=== PATIENT | female | born 1980 | race Two or more races ===

== ENCOUNTER 2025-03-04 11:57 | Emergency (ER) | payer MEDICAID, OTHER ==
[~2025-03-04] VITALS: Ht 154.9 cm; Wt 84.7 kg
--- NOTE | 2025-03-04 12:19 | ED.PDOC ---
SOB-HPI HPI Comments This is a 44 year old female presenting to the ED with chief complaint of SOB. Patient reports that she started to experience SOB with associated body aches and coughing since 9am this morning, no relief provided by inhaler used at home. Patient relays that she has history of asthma. Patient denies any chest pain, dizziness, fever, chills, N/V, or productive cough. Chief Complaint: Asthma Time Seen by MD: 12:16 Reviewed notes: Nurses Notes, Medications, Allergies Information Source: Patient Mode of Arrival: Ambulatory Severity: Moderate Timing: Hours Duration: Since onset Context: At Rest PE Risk Factors: None History of: Asthma Prehospital treatment: Breathing Tx Modifying Factors: Nothing Associated Signs and Symptoms: Cough If cough with SOB: Non-Productive Past Medical History PAST MEDICAL HISTORY: Asthma Surgical History: Denies all surgeries [employer] History: Denies all [employer] Hx Family History Family History: Reviewed,noncontributory to illness Social History Smoker: Non-Smoker Alcohol: Denies ETOH Use Drugs: Methamphetamine Lives In: Home Constitutional: reports: chills; denies: diaphoresis, fatigue, fever, malaise, sweats, weakness, others EENTM: denies: blurred vision, double vision, ear bleeding, ear discharge, ear drainage, ear pain, ear ringing, eye pain, eye redness, hearing loss, mouth pain, mouth swelling, nasal discharge, nose bleeding, nose congestion, nose pain, photophobia, tearing, throat pain, throat swelling, voice changes, others Respiratory: reports: cough, shortness of breath; denies: hemoptysis, orthopnea, SOB at rest, SOB with excertion, stridor, wheezing, others Cardiovascular: denies: chest pain, dizzy spells, diaphoresis, Dyspnea on exertion, edema, irregular heart beat, left arm pain, lightheadedness, palpitations, PND, syncope, others Gastrointestinal: denies: abdomen distended, abdominal pain, blood streaked bowels, constipated, diarrhea, dysphagia, difficulty swallowing, hematemesis, melena, nausea, poor appetite, poor fluid intake, rectal bleeding, rectal pain, vomiting, others Genitourinary: denies: abnormal vagina bleeding, burning, dyspareunia, dysuria, flank pain, frequency, hematuria, incontinence, pain, , vagina discharge, urgency, others Neurological: denies: dizziness, fainting, headache, left sided numbness, left sided weakness, numbness, paresthesia, pre-existing deficit, right sided numbness, right sided weakness, seizure, speech problems, tingling, tremors, weakness, others Musculoskeletal: denies: back pain, gout, joint pain, joint swelling, muscle pain, muscle stiffness, neck pain, others Integumetry: denies: bruises, change in color, change in hair/nails, dryness, laceration, lesions, lumps, rash, wounds, others Allergic/Immunocompromised: denies: Difficulty Healing, Frequent Infections, Hives, Itching, others Hematologic/Lymphatic: denies: anemia, blood clots, easy bleeding, easy bruising, swollen glands, others Endocrine: denies: excessive hunger, excessive sweating, excessive thirst, excessive urination, flushing, intolerance to cold, intolerance to heat, unexplained weight gain, unexplained weight loss, others Psychiatric: denies: anxiety, bipolar disorder, depression, hopeless, panic disorder, schizophrenia, sleepless, suicidal, others All Other Systems: Reviewed and Negative Physical Exam General Appearance: No Apparent Distress, Normal HEENT: Normal ENT Inspection, Pharynx Normal, TMs Normal Neck: Full Range of Motion, Non-Tender, Normal, Normal Inspection Respiratory: Chest Non-Tender, Lungs Clear, No Accessory Muscle Use, Wheezing (Bilaterally) Cardiovascular: No Edema, No JVD, No Murmur, No Gallop, Normal Peripheral Pulses, Regular Rate/Rhythm Breast Exam: Deferred Gastrointestinal: No Organomegaly, Non Tender, No Pulsatile Mass, Normal Bowel Sounds, Soft Genitalia: Deferred Pelvic: Deferred Rectal: Deferred Extremities: No calf tenderness, Normal capillary refill, Normal inspection, N ormal range of motion, Non-tender, No pedal edema Musculoskeletal : Apperance: Normal Neurologic: Alert, safety counselor II-XII nml as Tested, No Motor Deficits, Normal Affect, Normal Mood, No Sensory Deficits Cerebellar Function: Normal Reflexes: Normal Skin: Dry, Normal Color, Warm Lymphatic: No Adenopathy Was a procedure done? Was a procedure done?: No Differential Dx Differential Diagnosis: Asthma, Pneumonia, Respiratory Distress X-Ray, Labs, Meds, VS Vital Signs Date Time Temp Pulse Resp B/P (MAP) Pulse Ox O2 Delivery O2 Flow Rate FiO2 03/04/25 14:46 18 96 Room Air* 0 21 03/04/25 13:15 97.9 112 18 108/71 (83) 96 97.9 03/04/25 13:15 112 17 Room Air 03/04/25 12:31 18 95 Room Air* 0 21 03/04/25 12:00 98.0 124 23 125/53 96 98.0 Current Medications Medications (Trade) Dose Ordered Sig/Kathi Route Start Time Stop Time Status Last Admin Albuterol (Ventolin Medneb) 2.5 mg ONCE ONCE NEB 03/04/25 12:15 03/04/25 12:16 DC 03/04/25 12:31 Ipratropium Antelope (Atrovent Medneb) 0.5 mg ONCE ONCE NEB 03/04/25 12:15 03/04/25 12:16 DC 03/04/25 12:31 Prednisone 40 mg ONCE ONCE PO 03/04/25 12:15 03/04/25 12:16 DC 03/04/25 13:13 Albuterol (Ventolin Medneb) 5 mg ONCE ONCE NEB 03/04/25 12:45 03/04/25 12:46 DC 03/04/25 14:46 Time of 1ST Reevaluation: 13:15 Reevaluation 1ST: Improved Patient Education/Counseling: Diagnosis, Treatment Family Education/Counseling: No Family Present SEPSIS Sepsis Screen Date sepsis recognized/suspect: Mar 04, 2025 Time Sepsis recognized/suspect: 1200 Recent Procedure: No On Antibiotic Therapy: No Respiratory Rate >20: No Heart Rate >90: Yes Temp<36 C (96.8 F) or >38.3 C: No SBP <90 or MAP <65 mmHG: No New Acute Mental Status Change: No Is the patient on CPAP, BIPAP,: No Physician Orders Chest Portable (03/04/25 12:11) Vital Signs Date Time Temp Pulse Resp B/P (MAP) Pulse Ox O2 Delivery O2 Flow Rate FiO2 03/04/25 14:46 18 96 Room Air* 0 21 03/04/25 13:15 97.9 112 18 108/71 (83) 96 97.9 03/04/25 13:15 112 17 Room Air 03/04/25 12:31 18 95 Room Air* 0 21 03/04/25 12:00 98.0 124 23 125/53 96 98.0 Medications Medications Dose Ordered Sig/Kathi Route Start Time Stop Time Status Last Admin Dose Admin Albuterol 2.5 mg ONCE ONCE NEB 03/04/25 12:15 03/04/25 12:16 DC 03/04/25 12:31 Albuterol 5 mg ONCE ONCE NEB 03/04/25 12:45 03/04/25 12:46 DC 03/04/25 14:46 Ipratropium Antelope 0.5 mg ONCE ONCE NEB 03/04/25 12:15 03/04/25 12:16 DC 03/04/25 12:31 Prednisone 40 mg ONCE ONCE PO 03/04/25 12:15 03/04/25 12:16 DC 03/04/25 13:13 Departure 1 Departure Time of Disposition: 15:37 (Patient likely with asthma exacerbation. We will discharge patient home with outpatient follow up) Impression: Primary Impression: Acute asthma exacerbation Disposition: HOME / SELF CARE / HOMELESS Condition: Stable Additional Instructions: You likely had an asthma exacerbation. You should use your inhaler as directed. Your prescribed steroids. Please take as directed. It is important to follow up with the regular doctor within 1 week. If your symptoms worsen or you have any other concerns please return to the emergency room. e-Prescriptions Prednisone (Prednisone) 20 Mg Tab 40 MG PO DAILY for 5 Days, #10 MG Prov: FALLON BELLA MD 03/04/25 Albuterol Sulfate (VENTOLIN MDI) 90 Mcg Ih 90 MCG IN Q2HP PRN for 7 Days, #1 INH Prov: FALLON BELLA MD 03/04/25 Discharged With: Self Critical Care Note Critical Care Time?: No Stability Stability form required: No Heart Score Heart Score: Heart Score Response (Comments) Value History N/A 0 EKG N/A 0 Age N/A 0 Risk Factors N/A 0 Troponin N/A 0 Total 0 I personally scribed for FALLON BELLA MD ([email or web address]) on 03/04/25 at 12:19. Electronically submitted by Devante Botello ([email or web address]). FALLON BELLA MD Mar 04, 2025 12:19
[2025-03-04] MEDS: ALBUTEROL SULF 2.5 MG/0.5ML(0.5%) NEB SOLN NEB ONE ×2 (12:31→14:46)
[2025-03-04] MEDS: IPRATROPIUM BROM 0.5 MG/2.5ML INH SOL NEB ONE (12:31)
--- NOTE | 2025-03-04 12:43 | DVH ---
CHEST RADIOGRAPH Indication: sob Technique: Single frontal view of the chest was obtained COMPARISON: None FINDINGS: Lines and Tubes: None Lungs: Increased interstitial prominence. This may represent pulmonary vascular congestion and/or viral pneumonia. Pleura: No effusion.No pneumothorax. Cardiomediastinal contours: Unremarkable Bones: Unremarkable IMPRESSION: Increased interstitial prominence. This may represent pulmonary vascular congestion and/or viral pneumonia.
[2025-03-04] MEDS: predniSONE 20 MG TAB PO ONE (13:13)
[2025-03-04] MEDS ORDERED: ALBUAER3 IN (15:40)
[2025-03-04] MEDS ORDERED: PRED20TA2 PO (15:40)
[2025-03-04 15:47] VITALS: BP 134/89; PULSE 87; RESP 18; TEMP 98.7; O2SAT 96
== END 2025-03-04 15:49 | disposition home or self-care (01) ==
LOC: ER 11:57
DX: J45.901 Unspecified asthma with (acute) exacerbation (principal); Z79.899 Other long term (current) drug therapy
CPT/HCPCS: 71045; 94640; 99285; J7512